=== PATIENT | female | born 1955 | race Caucasian/White ===

== ENCOUNTER 2016-11-11 08:06 | Emergency (ER) | payer OTHER ==
[2016-11-11] MEDS ORDERED: ASPIRIN 81 MG TABLET, CHEWABLE PO ONE (08:43)
[2016-11-11] MEDS ORDERED: IPRATROPIUM/ALBUTEROL 0.5-2.5 MG/3 ML AMPUL NEB ONE (08:44)
[2016-11-11 09:21] LABS: ABSOLUTE BASOPHILS # (AUTO) 0.1 10^3/uL (0.0-0.2); ABSOLUTE EOSINOPHILS # (AUTO) 0.2 10^3/uL (0.0-0.6); ABSOLUTE LYMPHOCYTES (AUTO) 2.6 10^3/uL (0.5-4.7); ABSOLUTE MONOCYTES (AUTO) 0.5 10^3/uL (0.1-1.4); ABSOLUTE NEUT (AUTO) 4.6 10^3/uL (1.7-8.2); BASOPHILS % (AUTO) 0.8 % (0-2); EOSINOPHILS % (AUTO) 1.9 % (0-6); HEMATOCRIT 40.7 % (36.0-47.0); HGB HCT DIFFERENCE 1.3; LYMPHOCYTES % (AUTO) 33.1 % (13-45); MEAN CORPUSCULAR HEMOGLOBIN 32.7 pg (27.0-33.4); MEAN CORPUSCULAR HGB CONC 34.5 g/dL (32.0-36.0); MEAN CORPUSCULAR VOLUME 95 fl (80-97); MONOCYTES % (AUTO) 6.1 % (3-13); RED BLOOD COUNT 4.28 10^6/uL (3.72-5.28); RED CELL DISTRIBUTION WIDTH 13.2 % (11.5-14.0); SEGMENTED NEUTROPHILS % (AUTO) 58.1 % (42-78); WHITE BLOOD COUNT 7.9 10^3/uL (4.0-10.5)
[2016-11-11 09:40] LABS: ALANINE AMINOTRANSFERASE 22 U/L (9-52); ALBUMIN 4.8 g/dL (3.5-5.0); ALKALINE PHOSPHATASE 73 U/L (38-126); ANION GAP 17 (5-19); ASPARTATE AMINO TRANSFERASE 17 U/L (14-36); BILIRUBIN,DIRECT 0.3 mg/dL (0.0-0.4); BILIRUBIN,TOTAL 0.7 mg/dL (0.2-1.3); BLOOD UREA NITROGEN 16 mg/dL (7-20); CALCIUM 10.4 mg/dL (8.4-10.2); CARBON DIOXIDE 26 mmol/L (22-30); CHLORIDE 102 mmol/L (98-107); CREATINE KINASE 43 U/L (30-135); CREATININE RESULT 0.79 mg/dL (0.52-1.25); GLUCOSE 123 mg/dL (75-110); MAGNESIUM 1.9 mg/dL (1.6-2.3); POTASSIUM 3.7 mmol/L (3.6-5.0); SODIUM 145.4 mmol/L (137-145); TOTAL PROTEIN 7.9 g/dL (6.3-8.2)
[2016-11-11 09:51] LABS: CREATINE KINASE MB 1.04 ng/mL (<4.55); TROPONIN I < 0.012 ng/mL
[2016-11-11 10:51] LABS: APPEARANCE,URINE CLEAR; BILIRUBIN,URINE NEGATIVE (NEGATIVE); GLUCOSE, URINE NEGATIVE (NEGATIVE); KETONES,URINE NEGATIVE (NEGATIVE); LEUKOCYTE ESTERASE,URINE NEGATIVE (NEGATIVE); NITRITE,URINE NEGATIVE (NEGATIVE); PROTEIN,URINE NEGATIVE (NEGATIVE); URINE SPECIFIC GRAVITY 1.016; UROBILINOGEN,URINE NEGATIVE mg/dL (<2.0)
[2016-11-11 11:00] LABS: URINE BARBITURATES SCREEN NEGATIVE; URINE METHADONE SCREEN NEGATIVE; URINE OPIATES LOW NEGATIVE; URINE PHENCYCLIDINE SCREEN NEGATIVE
--- NOTE | 2016-11-11 11:24 | ER Document Report ---
ED General - General Chief Complaint: Palpitations Stated Complaint: POSSIBLE HEART PALPITATIONS TRAVEL OUTSIDE OF THE [place] IN LAST 30 DAYS: No - HPI Patient complains to provider of: chest wall pain shortness of breath Notes: Patient coming in for shortness of breath chest wall pain diffuse body pain ongoing greater than a week. Patient states worse in the last few days therefore came to the ER for further evaluation. Patient states that currently she sees Dr. Alex who has her on multiple pain medications including Neurontin and hydrocodone however she states that she doesn't like taking hydrocodone. Patient states she has not had regular physician as that she cannot afford it. Upon entering the examination room the smell of cigarettes is overwhelming. Patient states that she only smokes lightly however will not clarify. Denies any drugs any alcohol. - Related Data Allergies/Adverse Reactions: No Known Allergies Allergy (Verified 11/11/16 08:32) Past Medical History - Social History Smoking Status: Current Every Day Smoker Chew tobacco use (# tins/day): No Frequency of alcohol use: None Drug Abuse: None Family History: Reviewed & Not Pertinent Patient has suicidal ideation: No Patient has homicidal ideation: No - Past Medical History Cardiac Medical History: Reports: Hx Hypertension Pulmonary Medical History: Reports: Hx Bronchitis, Hx COPD Denies: Hx Tuberculosis Renal/ Medical History: Denies: Hx Peritoneal Dialysis Psychiatric Medical History: Reports: Hx Depression Past Surgical History: Reports: Hx Appendectomy - hernia repair, Hx Cholecystectomy, Hx Hysterectomy - partial - Immunizations Hx Diphtheria, Pertussis, Tetanus Vaccination: Yes Hx Pneumococcal Vaccination: 09/15/12 Review of Systems - Review of Systems Constitutional: No symptoms reported EENT: No symptoms reported Cardiovascular: Chest pain, Palpitations Respiratory: No symptoms reported Gastrointestinal: No symptoms reported Genitourinary: No symptoms reported Female Genitourinary: No symptoms reported Musculoskeletal: Muscle pain Skin: No symptoms reported Hematologic/Lymphatic: No symptoms reported Neurological/Psychological: No symptoms reported -: Yes All other systems reviewed and negative Physical Exam - Vital signs Vitals: Temp Pulse Resp BP Pulse Ox 97.9 F 89 20 165/69 H 96 11/11/16 08:20 11/11/16 08:20 11/11/16 08:20 11/11/16 08:20 11/11/16 08:20 Interpretation: Normal - General General appearance: Appears well, Alert - HEENT Head: Normocephalic, Atraumatic Eyes: Normal Pupils: PERRL - Respiratory Respiratory status: No respiratory distress Chest status: Tender - Diffuse chest wall tenderness to palpation reproduces pain Breath sounds: Normal Chest palpation: Normal - Cardiovascular Rhythm: Regular Heart sounds: Normal auscultation Murmur: No - Abdominal Inspection: Normal Distension: No distension Bowel sounds: Normal Tenderness: Nontender Organomegaly: No organomegaly - Back Back: Normal, Nontender - Extremities General upper extremity: Normal inspection, Nontender, Normal color, Normal ROM , Normal temperature General lower extremity: Normal inspection, Nontender, Normal color, Normal ROM , Normal temperature, Normal weight bearing. No: Khloe's sign - Neurological Neuro grossly intact: Yes Cognition: Normal Orientation: AAOx4 [place] Coma Scale Eye Opening: Spontaneous [place] Coma Scale Verbal: Oriented Johanna Coma Scale Motor: Obeys Commands [place] Coma Scale Total: 15 Speech: Normal Motor strength normal: LUE, RUE, LLE, RLE Sensory: Normal - Psychological Associated symptoms: Normal affect, Normal mood - Skin Skin Temperature: Warm Skin Moisture: Dry Skin Color: Normal Course - Re-evaluation Re-evalutation: 11/11/16 14:51 The patient has atypical chest pain as the patient's chest pain is not suggestive of pulmonary embolus, cardiac ischemia, aortic dissection, or other serious etiology. Given the extremely low risk of these diagnoses further testing and evaluation for these possibilities does not appear to be indicated at this time. The patient has been instructed to return if the symptoms worsen or change in any way patient's lab work shows no significant pathology. Mild dehydration. Patient is to follow-up with his providers or Dr. Alex for further evaluations. - Vital Signs Vital signs: Temp Pulse Resp BP Pulse Ox 97.8 F 89 14 101/73 98 11/11/16 11:44 11/11/16 08:20 11/11/16 11:01 11/11/16 11:00 11/11/16 11:01 - Laboratory Result Diagrams: 11/11/16 08:05 11/11/16 08:05 Laboratory results interpreted by me: 11/11/16 11/11/16 08:05 09:45 Sodium 145.4 H Glucose 123 H Calcium 10.4 H Urine Blood LARGE H Discharge - Discharge Clinical Impression: diffuse myalgias, Chest wall pain, Tobacco abuse, Marijuana use COPD (chronic obstructive pulmonary disease) Qualifiers: COPD type: unspecified COPD Qualified Code(s): J44.9 - Chronic obstructive pulmonary disease, unspecified Condition: Good Disposition: HOME, SELF-CARE Instructions: Chest Wall Pain ([facility]), Palpitations (Irregular or Rapid Heartrate ) ([facility]) Additional Instructions: Your labwork at this time only shows some mild dehydration is no signs of any cardiac pathology chest x-ray shows no signs of pneumonia. To help shortness of breath on a highly recommend she stop smoking. He may continue your medications as previous he prescribed. Highly recommend following up with the clinics provided. You may continue to take Motrin or Tylenol for pain control. Prescriptions: Albuterol Sulfate [Proair HFA] 1 - 2 puff IH Q4 PRN #1 inhaler PRN Reason: Prednisone [Deltasone 20 mg Tablet] 2 tab PO DAILY 5 Days Forms: Smoking Cessation Education Referrals: [facility] [Provider Group] - Follow up as needed
[2016-11-11 11:45] VITALS: BP 101/73
--- NOTE | 2016-11-11 14:24 | EKG REPORT ---
SEVERITY:- NORMAL ECG - SINUS RHYTHM : Confirmed by: Umm Golden 11-Nov-2016 14:23:37
== END 2016-11-11 11:30 | disposition home or self-care (01) ==
LOC: ER 08:06
DX: J44.9 Chronic obstructive pulmonary disease, unspecified (principal); M79.1 Myalgia; R07.89 Other chest pain; R00.2 Palpitations; R06.02 Shortness of breath; F17.200 Nicotine dependence, unspecified, uncomplicated; F12.90 Cannabis use, unspecified, uncomplicated
CPT/HCPCS: 93005; 94640; 99285; 36415; 82553; 82550; 83735; 85025; 80053; 81001; 84484; 80307; 71020; 93010; J7620

== ENCOUNTER 2017-11-21 13:32 | Emergency (ER) | payer MEDICAID, OTHER ==
--- NOTE | 2017-11-21 14:21 | ER Document Report ---
ED Medical Screen (RME) - General Chief Complaint: Fall Stated Complaint: FALL/LEG PAIN Time Seen by Provider: 11/21/17 14:15 Notes: RAPID MEDICAL EVALUATION DISCLOSURE I have seen this patient as part of a Rapid Medical Evaluation and, if applicable, placed any initially appropriate orders. The patient will be seen and fully evaluated, including a full history and physical exam, by a provider ( in Main ED or Fast Track) when a room becomes available. 62-year-old female comes to the ER today "for a list of neurologists" after leaving her PCP office. ED social work staff received a call from mobile warehouse production worker who reported that the patient went to PCP office and was irate that she was not given a prescription for benzodiazepines so she voiced to the staff that she was going to go home and take a numerous amount of pills and also that if her interfered in any way that she would get a gun and shoot him. The patient reports to me that after she received her list of neurologists, she walked out of the ED to her parking lot and fell but does not know how she fell. She complains of left forearm pain, chest wall pain, bilateral knee pain, and neck pain. She denies any numbness tingling weakness. She denies any SI HI hallucinations to me. EXAM Clothes clean and without dirt or debris Patient has no forearm, chest wall, knee TTP upon using distraction technique Upon patient learning that I am performing my physical exam, she yells "you are killing me doc!" on palpation Minimal midline and paracervical spinal tenderness Cervical collar in place TRAVEL OUTSIDE OF THE [place] IN LAST 30 DAYS: No - Related Data Allergies/Adverse Reactions: No Known Allergies Allergy (Verified 11/21/17 14:04) Past Medical History - Past Medical History Cardiac Medical History: Reports: Hx Hypertension Pulmonary Medical History: Reports: Hx Bronchitis, Hx COPD Denies: Hx Tuberculosis Renal/ Medical History: Denies: Hx Peritoneal Dialysis Psychiatric Medical History: Reports: Hx Depression Past Surgical History: Reports: Hx Appendectomy - hernia repair, Hx Cholecystectomy, Hx Hysterectomy - partial - Immunizations Hx Diphtheria, Pertussis, Tetanus Vaccination: Yes Physical Exam - Vital signs Vitals: Temp Pulse Resp BP Pulse Ox 97.7 F 51 L 16 125/50 L 94 11/21/17 13:56 11/21/17 13:56 11/21/17 13:56 11/21/17 13:56 11/21/17 13:56 Course - Vital Signs Vital signs: Temp Pulse Resp BP Pulse Ox 97.7 F 51 L 16 125/50 L 94 11/21/17 13:56 11/21/17 13:56 11/21/17 13:56 11/21/17 13:56 11/21/17 13:56
[2017-11-21 14:37] LABS: ABSOLUTE BASOPHILS # (AUTO) 0.1 10^3/uL (0.0-0.2); ABSOLUTE EOSINOPHILS # (AUTO) 0.4 10^3/uL (0.0-0.6); ABSOLUTE LYMPHOCYTES (AUTO) 3.9 10^3/uL (0.5-4.7); ABSOLUTE MONOCYTES (AUTO) 0.6 10^3/uL (0.1-1.4); ABSOLUTE NEUT (AUTO) 5.2 10^3/uL (1.7-8.2); BASOPHILS % (AUTO) 0.9 % (0-2); EOSINOPHILS % (AUTO) 3.5 % (0-6); HEMATOCRIT 39.4 % (36.0-47.0); HEMOGLOBIN 13.5 g/dL (12.0-15.5); LYMPHOCYTES % (AUTO) 38.1 % (13-45); MEAN CORPUSCULAR HEMOGLOBIN 32.5 pg (27.0-33.4); MEAN CORPUSCULAR HGB CONC 34.2 g/dL (32.0-36.0); MEAN CORPUSCULAR VOLUME 95 fl (80-97); MONOCYTES % (AUTO) 6.1 % (3-13); PLATELET COUNT 338 10^3/uL (150-450); RED BLOOD COUNT 4.15 10^6/uL (3.72-5.28); RED CELL DISTRIBUTION WIDTH 14.5 % (11.5-14.0); SEGMENTED NEUTROPHILS % (AUTO) 51.4 % (42-78); TOTAL CELLS COUNTED % (AUTO) 100 %; WHITE BLOOD COUNT 10.2 10^3/uL (4.0-10.5)
[2017-11-21 14:56] LABS: ACETAMINOPHEN < 10 ug/mL (10-30); ALANINE AMINOTRANSFERASE 22 U/L (9-52); ALBUMIN 4.3 g/dL (3.5-5.0); ALCOHOL < 10 mg/dL (NONE DETECTED); ALKALINE PHOSPHATASE 101 U/L (38-126); ANION GAP 12 (5-19); ASPARTATE AMINO TRANSFERASE 16 U/L (14-36); BILIRUBIN,DIRECT 0.3 mg/dL (0.0-0.4); BILIRUBIN,TOTAL 0.3 mg/dL (0.2-1.3); BLOOD UREA NITROGEN 12 mg/dL (7-20); CALCIUM 9.4 mg/dL (8.4-10.2); CARBON DIOXIDE 28 mmol/L (22-30); CHLORIDE 105 mmol/L (98-107); GLUCOSE 90 mg/dL (75-110); POTASSIUM 4.2 mmol/L (3.6-5.0); SALICYLATE < 1.0 mg/dL (2.0-20.0); SODIUM 144.7 mmol/L (137-145); TOTAL PROTEIN 6.8 g/dL (6.3-8.2)
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
[2017-11-21] MEDS ORDERED: FLUOXETINE HCL 20 MG CAPSULE PO ONE (17:23)
--- NOTE | 2017-11-21 18:19 | EKG REPORT ---
SEVERITY:- NORMAL ECG - SINUS RHYTHM : Confirmed by: Donny Manzano MD 21-Nov-2017 18:18:23
[2017-11-21] MEDS: CLONAZEPAM 1 MG TABLET PO SCH (18:21)
[2017-11-21] MEDS: BUSPIRONE HCL 10 MG TABLET PO SCH (18:22)
--- NOTE | 2017-11-21 18:30 | ER Document Report ---
Doctor's Note Notes: 11/21/17 18:27 Note: This is a patient who presented to the ER with neck pain and wanting a referral to a list of neurologists. Mobile crisis person and contacted the ER and stated that the patient had presented to the primary care doctor's office and was agitated and threatening and upset about not getting a prescription for benzodiazepines. The patient subsequently expressed desires to shoot her at which time she was placed on involuntary hold by Dr. Richards. She has been seen by the floorworker distributor. I was called by the nurse because the patient was found trying to get into a bottle of clonazepam in the room. She also had some Ativan in her purse. The problem is she is probably a chronic benzodiazepine user which puts her at risk of withdrawal. Therefore I have put her on clonazepam given the high suspicion that she is a chronic user. She has been seen by psychiatry services and has been started on BuSpar and Prozac. The patient has refused the first doses today. Plan is to continue IVC for reevaluation in the morning. 11/21/17 18:44
[2017-11-21] MEDS ORDERED: NICOTINE 14 MG/24 HR PATCH.TD24 TD ONE (18:46)
[2017-11-21] MEDS ORDERED: ALBUTEROL SULFATE HFA (90 MCG/PUFF) 8 GM MDI (1 MDI/ER DISP) IH PRN (18:46)
[2017-11-21] MEDS ORDERED: HYDROXYZINE PAMOATE 50 MG CAPSULE PO SCH (22:00)
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
[2017-11-22] MEDS: BUSPIRONE HCL 10 MG TABLET PO SCH (10:09)
[2017-11-22] MEDS: CLONAZEPAM 1 MG TABLET PO SCH (10:10)
--- NOTE | 2017-11-22 10:16 | ER Document Report ---
Doctor's Note Notes: 11/22/17 10:25 Patient with reported plan of murder suicide. Followed by integrated family services. Drug-seeking behavior. Violent outbursts. Refusing to take medications orally. At this time will follow recommendations and give intramuscular doses of medications. Patient is refusing her medications this morning orally so will place her on Zyprexa, Cogentin and clonidine patch.
[2017-11-22] MEDS ORDERED: ACETAMINOPHEN 325 MG TABLET PO ONE (15:59)
[2017-11-22] MEDS: GABAPENTIN 300 MG CAPSULE PO SCH (17:33)
[2017-11-22] MEDS: OLANZAPINE INJ/PF 10 MG SDV IM SCH (17:35)
--- NOTE | 2017-11-23 09:10 | ER Document Report ---
Doctor's Note Notes: 11/23/17 09:10 I have evaluated this patient this am and has no c/o at this time. She does want to be discharged, but she is refusing to give up her gun. Awaiting dispositon per mental health, but they are recommending continued observation in the emergency room with medications.
[2017-11-23 09:17] LABS: URINE AMPHETAMINES SCREEN NEGATIVE; URINE BARBITURATES SCREEN NEGATIVE; URINE BENZODIAZEPINES SCREEN UNCONFIRMED POSITIVE; URINE COCAINE SCREEN NEGATIVE; URINE MARIJUANA (THC) SCREEN NEGATIVE; URINE METHADONE SCREEN NEGATIVE; URINE PHENCYCLIDINE SCREEN NEGATIVE
[2017-11-23] MEDS: CLONIDINE 0.1 MG/24 HR PATCH.TDWK TD SCH (10:18)
[2017-11-23] MEDS: GABAPENTIN 300 MG CAPSULE PO SCH ×2 (10:18→17:37)
[2017-11-23] MEDS: BENZTROPINE MESYLATE INJ 2 MG/2 ML AMPULE IM SCH (10:18)
[2017-11-23] MEDS: OLANZAPINE INJ/PF 10 MG SDV IM SCH ×2 (10:18→17:37)
--- NOTE | 2017-11-23 18:08 | PSYCHOLOGICAL NOTE ---
Psych Note - Psych Note Psych Note: Reason for consult: 2nd Re-Evaluation, IVC for SI and HI and patient unwilling to allow for plan that removes means Contact Permission: Walter Calabrese [phone] Patient is a 62 year old female who has been in the ED on IVC since Tuesday (02/01) for SI and HI with plan, means and access. Today patient stated "I am ready to go home." She reported she never said she was going to do anything to hurt/harm/kill self and the statement she made regarding her "was taken out of context." She was adamant she did not say she was going to shoot her but rather she was talking with her therapist at [facility] about having been 30 some years and there were times she wanted to kill her . 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 Throughout the day nursed noted patient had moments where she began crying. Mood was somewhat labile (between irritable and crying). Diagnosis: 296.7 (F 31.9) Bipolar 1 Disorder (by history) current or most recent episode unspecified R/O 301.83 (F60.3) Borderline Personality Disorder Impression/Plan: Recommendation to maintain IVC. Patient continued to refuse to voluntarily give up gun in the home. She continued to maintain what she said to therapist at [facility] was "taken out of context." She was tearful and irritable ( mood lability) today. She would talk over this commercial loan underwriter often. Consulted with Dr. Torres regarding the management and care of patient. Dr. Torres trying to find out if legally there is any way to remove firearm from the home.
[2017-11-23] MEDS ORDERED: ACETAMINOPHEN 325 MG TABLET PO ONE (18:27)
[2017-11-23] MEDS ORDERED: NICOTINE 21 MG/24 HR PATCH.TD24 TD ONE (18:27)
[2017-11-23] MEDS ORDERED: MAG HYDROX/AL HYDROX/SIMETH SUSP 30 ML UDCUP PO ONE (20:07)
[2017-11-23] MEDS ORDERED: ZOLPIDEM TARTRATE 5 MG TABLET PO ONE (21:29)
[2017-11-24] MEDS: GABAPENTIN 300 MG CAPSULE PO SCH ×2 (09:12→17:40)
[2017-11-24] MEDS: CLONIDINE 0.1 MG/24 HR PATCH.TDWK TD SCH (09:13)
[2017-11-24] MEDS: OLANZAPINE INJ/PF 10 MG SDV IM SCH ×2 (09:14→17:36)
[2017-11-24] MEDS: BENZTROPINE MESYLATE INJ 2 MG/2 ML AMPULE IM SCH (09:14)
--- NOTE | 2017-11-24 09:29 | ER Document Report ---
Doctor's Note Notes: 11/24/17 10:00 62-year-old female patient here for multiple days for evaluation of progression with questionable homicidal ideation. I doubt this is a significant concern in my opinion at this time. Apparently patient has a gun in the house. States that it is a shotgun that was used for hunting and has not been used in years. Patient states that she does not even know how to use it. I tend to believe her at this time. Patient does have borderline personality so some of what she is saying is manipulative for sure. However at this time patient denies any active homicidal ideation or thoughts of wanting to hurt her or anyone else. Patient is adamant that she wants to go home. Patient states that she has neuropathic pain and she has not been on her appropriate dose of Neurontin. Requesting aspirin. States that she does have some dysuria. Urine culture results are back which did not grow anything out. Will repeat urinalysis at this time. We will give her a dose of Pyridium. Anticipate patient should be able to be discharged. Discharge - Discharge Clinical Impression: Borderline personality disorder, Dysuria Cervical strain, acute Qualifiers: Encounter type: initial encounter Qualified Code(s): S16.1XXA - Strain of muscle, fascia and tendon at neck level, initial encounter Condition: Good Disposition: HOME, SELF-CARE Instructions: Depression ([facility]), Neck Injury (Cervical Strain) ([facility]) Additional Instructions: SUICIDAL IDEATION: Suicidal ideation is a common medical term for thoughts about suicide, which may be as detailed as a formulated plan, without the suicidal act itself. Although most people who undergo suicidal ideation do not commit suicide, some go on to make suicide attempts. The range of suicidal ideation varies greatly from fleeting to detailed planning, role playing, and unsuccessful attempts. While thoughts about suicide are common, most people do not carry out serious actions to commit suicide. Based upon your evaluation and discussion with you, we do not believe you are currently at risk to act upon your thoughts of suicide. You have agreed to return to the Emergency Department, at any time , if you feel inclined to act upon your suicidal thoughts. HOMICIDAL IDEATION: Homicidal ideation is a common medical term for thoughts about homicide, which may be as detailed as a formulated plan, without the homicidal act itself. Although most people who undergo homicidal ideation do not commit homicide, some go on to make homicide attempts. The range of homicidal ideation varies greatly from fleeting to detailed planning, role playing, and unsuccessful attempts. While thoughts about homicide are common, most people do not carry out serious actions to commit homicide. Based upon your evaluation and discussion with you, we do not believe you are currently at risk to act upon your thoughts of homicide. You have agreed to return to the Emergency Department, at any time , if you feel inclined to act upon your homicidal thoughts. Bipolar Disorder Bipolar disorder is also called manic-depressive disorder. Depression alternates with brain hyperactivity called lukasz. Each phase lasts from several days to a few weeks. We don't know exactly what causes bipolar disorder , but it's treatable. During the "manic phase," you may feel elated and energetic. You may have racing thoughts, rapid speech, increased activity, and grandiose ideas. During this time, you may not realize how poor your judgement is. Inappropriate spending, drug abuse, excessive alcohol use, marriage problems, and irresponsible sexual behavior are common during the manic phase. During the "depressive phase," you might feel depressed, guilty, worthless , fatigued, and unable to concentrate. You might have thoughts of suicide. Good treatments are available for bipolar disorder. [place] is a classic drug for bipolar disorder, and is still often useful. If the manic phase is very mild, an antidepressant alone can be prescribed. If the manic phase is very severe, an antipsychotic medicine (such as Haldol) may be needed. The treatment must be matched to your symptoms, so it's important to work closely with your psychiatric care provider. Contact your physician, the hospital emergency center, crisis line, or your counsellor if you are losing control or having self-destructive thoughts. FOLLOW-UP CARE: You have follow up appointments scheduled with your outpatient provider [facility] ([facility]) for therapy on 11/25/17 at 1400 and medication management on 12/27/17 at 1300. If you experience worsening or a significant change in your symptoms, notify the physician immediately or return to the Emergency Department at any time for re-evaluation. Prescriptions: Benztropine Mesylate [Cogentin 1 mg Tablet] 1 mg PO DAILY 30 Days #30 tablet Clonidine HCl 0.1 mg PO DAILY 30 Days #30 tablet Olanzapine [Zyprexa 5 mg Tablet] 5 mg PO Q12 30 Days #60 tablet Phenazopyridine HCl [Pyridium 100 Mg Tablet] 100 mg PO BID 3 Days #6 tablet Referrals: [facility] [Provider Group] - 11/25/17 2:00 pm
[2017-11-24] MEDS ORDERED: PHENAZOPYRIDINE HCL 100 MG TABLET PO ONE (10:00)
[2017-11-24 10:17] LABS: APPEARANCE,URINE CLEAR; BILIRUBIN,URINE NEGATIVE (NEGATIVE); COLOR,URINE COLORLESS; GLUCOSE, URINE NEGATIVE (NEGATIVE); KETONES,URINE NEGATIVE (NEGATIVE); LEUKOCYTE ESTERASE,URINE SMALL (NEGATIVE); NITRITE,URINE NEGATIVE (NEGATIVE); PROTEIN,URINE NEGATIVE (NEGATIVE); URINE SPECIFIC GRAVITY 1.002; UROBILINOGEN,URINE NEGATIVE mg/dL (<2.0)
[2017-11-24 17:03] VITALS: BP 127/63
--- NOTE | 2017-11-24 18:53 | PSYCHOLOGICAL NOTE ---
Psych Note - Psych Note Psych Note: Reason for consult: 3rd Re-Evaluation, IVC for SI and HI and patient unwilling to allow for plan that removes means Contact Permission: Walter Calabrese [phone] Patient is a 62 year old female who has been in the ED on IVC since Tuesday (02/01) for SI and HI with plan, means and access. Patient denied current SI/HI and continued to maintain she never made SI statement and the HI statement was taken out of context. Her story has been consistent since arrival to the ED. She still did not want to remove gun from the home, commented "it has been hidden in the home since last year when she did so after her had a mental breakdown and there is so much dust on it you can tell it has not been used." Mood lability improved today (no switching back and forth between crying and irritability). Patient was more easily redirected. She interacted more appropriately with staff. Patient was alert and oriented to person, place, time and situation. Improved mood lability with brighter affect. Mood was more euthymic. She denied current SI/HI and continued to maintain she never made SI statement and the HI statement was taken out of context. She did not appear to be responding to internal stimuli as evidenced by fair eye contact, staying on topic, answering questions appropriately when addressed and ability to have dialogue conversation. Thought processes were linear and organized. Conversational speech was within normal limits for rate, tone and prosody. Intellectual abilities are estimated to be average. Insight, judgment and impulse control are fair as evidenced by improved lability and appropriate interactions. Diagnosis: 296.7 (F 31.9) Bipolar 1 Disorder (by history) current or most recent episode unspecified R/O 301.83 (F60.3) Borderline Personality Disorder Impression/Plan: ON LICENSE OF [facility] Behavioral Health team made a DSS/APS report and worker Mervat came to the ED where he spoke to both and patient separately. Patient psychiatrically cleared (acutely). Recommendation to rescind IVC. Dr. Torres spent time inquiring to [employer], [employer] and researching state and federal laws regarding the ability to remove firearms from the home. Given LE did not respond to the home setting and patient being Involuntarily Committed at the hospital LE cannot remove it however Federal Law enforcement can press charges if patient choses to use the gun inappropriately upon discharge (patient informed of this). Patient continued to maintain she never said she was suicidal and the homicidal ideation was taken out of context. She also maintained the gun has not been used or touch in a year, there is dust on the gun to indicate such and there is no ammo. Patient has denied SI/HI adamantly since arrival to the ED. Mood lability was less today (she was not tearful and irritable). She was much more easily redirected. Outpatient appointments scheduled with current Provider [facility] on 11/25/17 at 1400 for therapy and on 12/27 at 1300 for medication management. This telegraphic typewriter mechanic also spoke to Sedrick Montanez with [facility] after hours call center to inform of discharge and plan of care in case [facility] wants to do a check in. Consulted with Dr. Torres regarding the management and care of patient. Medication recommendations made by the psychiatric medical provider, Dr. Bronwyn GOOD, include: Scripts for medications administered in the ED Zyprexa 5MG PO twice a day for mood stabilization and impulse control Cogentin 1MG PO daily to curb tremors that are often associated with antipsychotic medications
== END 2017-11-24 18:39 | disposition home or self-care (01) ==
LOC: ER 13:32
DX: F60.3 Borderline personality disorder (principal); S16.1XXA Strain of muscle, fascia and tendon at neck level, initial encounter; M25.559 Pain in unspecified hip; M54.2 Cervicalgia; W10.1XXA Fall (on)(from) sidewalk curb, initial encounter; Y93.89 Activity, other specified; R30.0 Dysuria; I10 Essential (primary) hypertension; J44.9 Chronic obstructive pulmonary disease, unspecified; F17.200 Nicotine dependence, unspecified, uncomplicated; Z91.14 Patient's other noncompliance with medication regimen
CPT/HCPCS: 93005; 99285; 96372; 36415; 87086; 80307 ×4; 85025; 80053; 81001; 93010; L0120; J3490 ×15; J0515 ×2

== ENCOUNTER 2017-12-12 20:11 | Emergency (ER) | payer MEDICAID, OTHER ==
[2017-12-12 22:16] LABS: ALANINE AMINOTRANSFERASE 37 U/L (9-52); ALBUMIN 3.7 g/dL (3.5-5.0); ALKALINE PHOSPHATASE 131 U/L (38-126); ANION GAP 9 (5-19); ASPARTATE AMINO TRANSFERASE 28 U/L (14-36); BILIRUBIN,DIRECT 0.1 mg/dL (0.0-0.4); BILIRUBIN,TOTAL 0.1 mg/dL (0.2-1.3); BLOOD UREA NITROGEN 27 mg/dL (7-20); CALCIUM 9.6 mg/dL (8.4-10.2); CARBON DIOXIDE 30 mmol/L (22-30); CHLORIDE 108 mmol/L (98-107); GLUCOSE 100 mg/dL (75-110); POTASSIUM 4.5 mmol/L (3.6-5.0); SODIUM 146.8 mmol/L (137-145); TOTAL PROTEIN 6.6 g/dL (6.3-8.2)
[2017-12-12 23:50] LABS: APPEARANCE,URINE SLIGHTLY-CLOUDY; BILIRUBIN,URINE NEGATIVE (NEGATIVE); COLOR,URINE STRAW; GLUCOSE, URINE NEGATIVE (NEGATIVE); KETONES,URINE NEGATIVE (NEGATIVE); LEUKOCYTE ESTERASE,URINE TRACE (NEGATIVE); NITRITE,URINE NEGATIVE (NEGATIVE); PROTEIN,URINE NEGATIVE (NEGATIVE); URINE SPECIFIC GRAVITY 1.008; UROBILINOGEN,URINE NEGATIVE mg/dL (<2.0)
--- NOTE | 2017-12-13 00:48 | ER Document Report ---
ED General - General Chief Complaint: Swelling Stated Complaint: GENERALIZED SWELLING Time Seen by Provider: 12/12/17 20:51 Mode of Arrival: Ambulatory Information source: Patient Notes: 62-year-old female patient presents to the emergency department complaining of upper and lower extremity swelling that has been going on for several months but worse over the last week. Patient denies any other symptoms such as fever, cough, shortness of breath, nausea, vomiting or diarrhea. Patient reports that she feels like she is swelling all over. Patient with nerve damage, depression , bipolar, COPD and palpitations. TRAVEL OUTSIDE OF THE [place] IN LAST 30 DAYS: No - Related Data Allergies/Adverse Reactions: No Known Allergies Allergy (Verified 12/12/17 20:12) Past Medical History - General Information source: Patient - Social History Smoking Status: Current Every Day Smoker Cigarette use (# per day): No Chew tobacco use (# tins/day): No Smoking Education Provided: No Frequency of alcohol use: None Drug Abuse: None Family History: Reviewed & Not Pertinent - Past Medical History Cardiac Medical History: Reports: Hx Hypertension Pulmonary Medical History: Reports: Hx Bronchitis, Hx COPD Denies: Hx Tuberculosis Renal/ Medical History: Denies: Hx Peritoneal Dialysis Musculoskeltal Medical History: Reports Hx Arthritis - Osteo Psychiatric Medical History: Reports: Hx Depression Past Surgical History: Reports: Hx Appendectomy - hernia repair, Hx Cholecystectomy, Hx Hysterectomy - partial - Immunizations Hx Diphtheria, Pertussis, Tetanus Vaccination: Yes Hx Pneumococcal Vaccination: 09/15/12 Review of Systems - Review of Systems Constitutional: No symptoms reported EENT: No symptoms reported Cardiovascular: No symptoms reported Respiratory: No symptoms reported Gastrointestinal: No symptoms reported Genitourinary: No symptoms reported Female Genitourinary: No symptoms reported Musculoskeletal: See HPI Skin: No symptoms reported Hematologic/Lymphatic: No symptoms reported Neurological/Psychological: No symptoms reported Physical Exam - Vital signs Vitals: Temp Pulse Resp BP Pulse Ox 98.2 F 92 16 122/67 98 12/12/17 20:17 12/12/17 20:17 12/12/17 20:17 12/12/17 20:17 12/12/17 20:17 - Notes Notes: PHYSICAL EXAMINATION: GENERAL: Well-appearing, well-nourished and in no acute distress. HEAD: Atraumatic, normocephalic. EYES: Pupils equal round and reactive to light, extraocular movements intact, conjunctiva are normal. ENT: Nares patent, oropharynx clear without exudates. Moist mucous membranes. NECK: Normal range of motion, supple without lymphadenopathy LUNGS: Breath sounds clear to auscultation bilaterally and equal. No wheezes rales or rhonchi. HEART: Regular rate and rhythm without murmurs ABDOMEN: Soft, nontender, nondistended abdomen. No guarding, no rebound. No masses appreciated. Female : deferred Musculoskeletal: Normal range of motion, no edema to upper extremities, non- pitting 1+ edema to bilateral lower extremities. No cyanosis. NEUROLOGICAL: Cranial nerves grossly intact. Normal speech, normal gait. Normal sensory, motor exams PSYCH: Normal mood, normal affect. SKIN: Warm, Dry, normal turgor, no rashes or lesions noted. Course - Re-evaluation Re-evalutation: 62-year-old female patient with multiple psychiatric diagnoses presents with complaints of swelling to her upper and lower extremities. Patient has no swelling noted to the upper extremities and patient has 1+ nonpitting edema to her lower extremities which patient states has been there for months. Patient states that she has not remembered to mention this to her primary care provider. Will check electrolytes as well as TSH and urine to evaluate for causes of peripheral edema. All laboratory studies are unremarkable. Patient will be discharged home with instructions to elevate her lower extremities above the level of her heart is much as possible, patient will also be instructed to buy compression stockings and wear them whenever she is on her feet. Patient already has a prescheduled follow-up appointment with her primary care provider for December 23 with Samantah Moore and patient will be instructed to keep this appointment. Patient is agreeable to this plan of care. - Vital Signs Vital signs: Temp Pulse Resp BP Pulse Ox 98.2 F 92 20 120/82 95 12/12/17 20:17 12/12/17 20:17 12/13/17 00:00 12/13/17 01:05 12/13/17 00:00 - Laboratory Result Diagrams: 12/12/17 21:45 Laboratory results interpreted by me: 12/12/17 12/12/17 21:45 23:30 Sodium 146.8 H Chloride 108 H BUN 27 H Total Bilirubin 0.1 L Alkaline Phosphatase 131 H Ur Leukocyte Esterase TRACE H Discharge - Discharge Clinical Impression: Peripheral edema Condition: Stable Disposition: HOME, SELF-CARE Additional Instructions: Edema, Peripheral You have swelling in your legs. This is called peripheral edema. It can be caused by "leaky capillaries," inflammation, disease of the leg veins, or excess salt and water in your body. Edema may be a sign of heart, kidney, or liver disease. A medical evaluation can determine if there is a serious underlying cause for your edema. Avoid prolonged standing. If you must sit for a long time, occasionally get up and walk around or elevate your legs. Support stockings can be helpful in limiting swelling. Often diuretic or water pills are used to remove excess salt and water from your body. Call the doctor or return if you develop increased swelling, pain, or redness, shortness of breath, chest pain, or any other significant change. Please keep your legs elevated as much as possible while you are at home. Please advise compression stockings and wear them anytime you are. Please keep your appointment with Samantha Moore that you already have scheduled for December 24. Please return to the emergency department if you have any worsening symptoms or complaints. Referrals: MAGDA ARIZA PA [Primary Care Provider] - Follow up as needed
[2017-12-13 01:07] VITALS: BP 120/82
== END 2017-12-13 01:08 | disposition home or self-care (01) ==
LOC: ER 20:11
DX: R60.0 Localized edema (principal); M79.89 Other specified soft tissue disorders; F17.200 Nicotine dependence, unspecified, uncomplicated; I10 Essential (primary) hypertension; J44.9 Chronic obstructive pulmonary disease, unspecified
CPT/HCPCS: 36415; 80053; 81001; 84443; 99284

== ENCOUNTER 2018-03-26 15:01 | Emergency (ER) | payer MEDICAID ==
[2018-03-26] MEDS ORDERED: KETOROLAC TROMETHAMINE INJ/PF 30 MG/1 ML SDV IM ONE (16:20)
[2018-03-26] MEDS ORDERED: DEXAMETHASONE SOD PHOS INJ 10 MG/1 ML VIAL IM ONE (16:22)
--- NOTE | 2018-03-26 16:28 | ER Document Report ---
HPI - HPI Pain Level: 4 Context: Patient is a 62-year-old female complaining of acute low back pain after trying to lift and move a cemented bench. Patient felt acute pain to her mid low back as she lifted. No fever, no paresthesias or radiculopathy. No bowel or bladder change Associated Symptoms: None Exacerbated by: Movement Relieved by: Denies Similar symptoms previously: No Recently seen / treated by doctor: No - ROS Systems Reviewed and Negative: Yes All other systems reviewed and negative - CONSTITUTIONAL Constitutional: DENIES: Fever, Chills - REPRODUCTIVE Reproductive: DENIES: : Past Medical History - General Information source: Patient - Social History Smoking Status: Current Every Day Smoker Chew tobacco use (# tins/day): No Frequency of alcohol use: Rare Drug Abuse: None Lives with: Family Family History: Reviewed & Not Pertinent Patient has suicidal ideation: No Patient has homicidal ideation: No - Past Medical History Cardiac Medical History: Reports: Hx Hypertension Pulmonary Medical History: Reports: Hx Bronchitis, Hx COPD Denies: Hx Tuberculosis Renal/ Medical History: Denies: Hx Peritoneal Dialysis Musculoskeletal Medical History: Reports Hx Arthritis - Osteo Psychiatric Medical History: Reports: Hx Depression Past Surgical History: Reports: Hx Appendectomy - hernia repair, Hx Cholecystectomy, Hx Hysterectomy - Immunizations Hx Diphtheria, Pertussis, Tetanus Vaccination: Yes Hx Pneumococcal Vaccination: 09/15/12 Vertical Provider Document - CONSTITUTIONAL Agree With Documented VS: Yes Exam Limitations: No Limitations - INFECTION CONTROL TRAVEL OUTSIDE OF THE [place] IN LAST 30 DAYS: No - HEENT HEENT: Atraumatic, PERRLA - NECK Neck: Normal Inspection, Supple - RESPIRATORY Respiratory: Breath Sounds Normal, No Respiratory Distress - CARDIOVASCULAR Cardiovascular: Regular Rate, Regular Rhythm - BACK Back: Abnormal Inspection - focal mid lumbar spinal and paraspinal tenderness. Course - Re-evaluation Re-evalutation: 03/26/18 16:27 Patient presents with acute low back pain without signs of spinal cord compression, cauda equina, infection, aneurysm or other serious etiology patient is neurologically intact, independently and steadily ambulatory without paresthesia or neurologic deficits. No x-rays are indicated today. ED return precautions, home care and follow-up with primary care discussed with patient. Patient is agreeable with plan and stable for discharge - Vital Signs Vital signs: Temp Pulse Resp BP Pulse Ox 97.9 F 80 20 110/62 98 03/26/18 15:26 03/26/18 15:26 03/26/18 15:26 03/26/18 15:26 03/26/18 15:26 Discharge - Discharge Clinical Impression: Acute low back pain Qualifiers: Back pain laterality: midline Sciatica presence: without sciatica Qualified Code(s): M54.5 - Low back pain Condition: Stable Disposition: HOME, SELF-CARE Instructions: Ice Packs ([facility]), Warm Packs ([facility]), Low Back Pain ([facility]), Toradol Injection ([facility]), Steroid Medication, Steroid Medication Injection, Muscle Relaxers ([facility]) Additional Instructions: Take medications as prescribed Alternate ice and heat to sore area Recommend topical anesthetic such as Aspercreme with lidocaine or Biofreeze Follow-up with the primary care if pain persists more than 10 days Prescriptions: Ibuprofen [Motrin 800 Mg Tablet] 800 mg PO Q6H #20 tablet Methocarbamol [Robaxin 500 Mg Tablet] 1,000 mg PO Q6 #30 tablet Referrals: MAGDA ARIZA PA [Primary Care Provider] - Follow up as needed
[2018-03-26 16:40] VITALS: BP 117/57
== END 2018-03-26 16:41 | disposition home or self-care (01) ==
LOC: ER 15:01
DX: M54.5 Low back pain (principal); F17.200 Nicotine dependence, unspecified, uncomplicated; I10 Essential (primary) hypertension; Z90.49 Acquired absence of other specified parts of digestive tract; Z90.710 Acquired absence of both cervix and uterus
CPT/HCPCS: 99283; 96372; J1885; J1100

== ENCOUNTER → 2019-11-08 | Outpatient (CLI) | payer MEDICAID ==
[2019-11-08 10:21] LABS: HEMATOCRIT 40.1 % (36.0-47.0); HEMOGLOBIN 13.8 g/dL (12.0-15.5); MEAN CORPUSCULAR HEMOGLOBIN 32.7 pg (27.0-33.4); MEAN CORPUSCULAR HGB CONC 34.5 g/dL (32.0-36.0); MEAN CORPUSCULAR VOLUME 95 fl (80-97); PLATELET COUNT 434 10^3/uL (150-450); RED BLOOD COUNT 4.22 10^6/uL (3.72-5.28); RED CELL DISTRIBUTION WIDTH 13.8 % (11.5-14.0); WHITE BLOOD COUNT 11.8 10^3/uL (4.0-10.5)
[2019-11-08 10:45] LABS: ALBUMIN 4.5 g/dL (3.5-5.0); ALKALINE PHOSPHATASE 97 U/L (38-126); ANION GAP 10 (5-19); ASPARTATE AMINO TRANSFERASE 18 U/L (14-36); BILIRUBIN,TOTAL 0.3 mg/dL (0.2-1.3); BLOOD UREA NITROGEN 20 mg/dL (7-20); CALCIUM 9.7 mg/dL (8.4-10.2); CARBON DIOXIDE 26 mmol/L (22-30); CHLORIDE 105 mmol/L (98-107); GLUCOSE 100 mg/dL (75-110); POTASSIUM 4.4 mmol/L (3.6-5.0); TOTAL PROTEIN 7.4 g/dL (6.3-8.2)
== END ==
LOC: OD 09:45
PROVIDERS: ATTEND Internal Medicine Gastroenterology
DX: R10.84 Generalized abdominal pain (principal)
CPT/HCPCS: 36415; 80048; 80076; 83690; 85027

== ENCOUNTER → 2019-12-17 | Outpatient (CLI) | payer MEDICAID ==
--- NOTE | 2019-12-17 10:12 | RADIOLOGY REPORT (SQ) ---
EXAM DESCRIPTION: U/S ABDOMEN COMPLETE W/O DOP IMAGES COMPLETED DATE/TIME: 12/17/2019 8:18 am REASON FOR STUDY: ABD PAIN, GENERALIZED (R10.84) R10.84 GENERALIZED ABDOMINAL PAIN COMPARISON: None. TECHNIQUE: Dynamic and static grayscale images acquired of the abdomen and recorded on PACS. Additio nal selected color Doppler and spectral images recorded. Note: Study does not meet criteria for complete doppler/duplex scan LIMITATIONS: None. FINDINGS: PANCREAS: The visualized portions of the pancreas appear normal. The pancreatic tail is o bscured by overlying bowel. LIVER: Normal contour and echotexture. LIVER VASCULATURE: Hepatopetal directional flow in the portal veins. GALLBLADDER: The gallbladder is surgically absent. ULTRASOUND-DETECTED BENSON'S SIGN: Negative. INTRAHEPATIC DUCTS AND COMMON DUCT: The common bile duct measures 6.7 mm in diameter. There is no di latation of the intrahepatic bile ducts. INFERIOR VENA CAVA: Patent. AORTA: No aneurysm. RIGHT KIDNEY: The right kidney measures 10.4 cm in length. There is no hydronephrosis. LEFT KIDNEY: The left kidney measures 8.8 cm in length. There is no hydronephrosis. SPLEEN: The spleen measures 9.1 cm in length. PERITONEAL AND PLEURAL SPACES: No ascites or effusions. OTHER: No other finding. IMPRESSION: 1. Status post cholecystectomy. 2. Normal appearance of the liver. 3. Nonvisualization of the pancreatic tail to overlying bowel. 4. No hydronephrosis. 5. No splenomegaly. TECHNICAL DOCUMENTATION: JOB ID: [id number] [email or web address]- All Rights Reserved Reading location - IP/workstation name: [email or web address]
== END ==
LOC: RAD 07:18
PROVIDERS: ATTEND Internal Medicine Gastroenterology
DX: R10.84 Generalized abdominal pain (principal)
CPT/HCPCS: 76700

== ENCOUNTER → 2019-12-18 | Outpatient (CLI) | payer MEDICAID ==
[2019-12-18 12:09] LABS: ABSOLUTE BASOPHILS # (AUTO) 0.1 10^3/uL (0.0-0.2); ABSOLUTE EOSINOPHILS # (AUTO) 0.2 10^3/uL (0.0-0.6); ABSOLUTE LYMPHOCYTES (AUTO) 2.8 10^3/uL (0.5-4.7); ABSOLUTE MONOCYTES (AUTO) 0.5 10^3/uL (0.1-1.4); ABSOLUTE NEUT (AUTO) 4.7 10^3/uL (1.7-8.2); BASOPHILS % (AUTO) 1.1 % (0-2); EOSINOPHILS % (AUTO) 2.7 % (0-6); HEMATOCRIT 39.4 % (36.0-47.0); HEMOGLOBIN 13.7 g/dL (12.0-15.5); LYMPHOCYTES % (AUTO) 33.4 % (13-45); MEAN CORPUSCULAR HEMOGLOBIN 32.6 pg (27.0-33.4); MEAN CORPUSCULAR HGB CONC 34.8 g/dL (32.0-36.0); MEAN CORPUSCULAR VOLUME 94 fl (80-97); MONOCYTES % (AUTO) 6.3 % (3-13); PLATELET COUNT 382 10^3/uL (150-450); RED CELL DISTRIBUTION WIDTH 13.9 % (11.5-14.0); SEGMENTED NEUTROPHILS % (AUTO) 56.5 % (42-78); TOTAL CELLS COUNTED % (AUTO) 100 %; WHITE BLOOD COUNT 8.3 10^3/uL (4.0-10.5)
[2019-12-18 12:41] LABS: ALBUMIN 4.7 g/dL (3.5-5.0); ALKALINE PHOSPHATASE 112 U/L (38-126); ANION GAP 10 (5-19); ASPARTATE AMINO TRANSFERASE 19 U/L (14-36); BILIRUBIN,TOTAL 0.3 mg/dL (0.2-1.3); BLOOD UREA NITROGEN 13 mg/dL (7-20); CALCIUM 9.9 mg/dL (8.4-10.2); CARBON DIOXIDE 25 mmol/L (22-30); CHLORIDE 105 mmol/L (98-107); GLUCOSE 101 mg/dL (75-110); POTASSIUM 4.3 mmol/L (3.6-5.0); TOTAL PROTEIN 7.4 g/dL (6.3-8.2)
== END ==
LOC: OD 11:12
PROVIDERS: ATTEND Physician Assistant
DX: Z11.2 Encounter for screening for other bacterial diseases (principal); I10 Essential (primary) hypertension
CPT/HCPCS: 36415; 80053; 85025; 87070